=== PATIENT | female | born 1975 | race Caucasian/White ===

== ENCOUNTER 2022-04-09 12:00 | Emergency (ER) | payer OTHER, MEDICAID, SELFPAY ==
[2022-04-09 12:09] VITALS: BP 148/79; PULSE 105; RESP 15; TEMP 37.2; O2SAT 97; BMI 30.7
[2022-04-09 13:27] LABS: Influenza A - CEPHEID Flu A POSITIVE (NEGATIVE); Influenza B - CEPHEID Flu B NEGATIVE (NEGATIVE); Respiratory Syncytial Virus Negative (Negative)
[2022-04-09 13:32] LABS: COVID-19 CEPHEID 4-PLEX PCR Negative (Negative)
[2022-04-09] MEDS: DEXAMETHASONE 10 MG/ML VIAL PO (13:46)
--- NOTE | 2022-04-09 13:52 | ED.URI ---
HPI - URI/Sore Throat <ORQUIDEA Patrick - Last Filed: 04/09/22 13:56> General Chief Complaint: Upper Respiratory Symptoms Stated Complaint: really sick for month & half, lungs & head hurt Time Seen by Provider: 04/09/22 13:08 Source: patient Mode of arrival: Ambulatory History of Present Illness HPI Narrative: This is a 46-year-old female presents emergency department with a cough for 1.5 months, states started again 4 days ago and has gotten worse, she has a headache and body aches, complains of fatigue. Denies any nausea, vomiting, chills or fever. Patient has had positive sick contacts recently, denies any medication today, she is an everyday smoker. Related Data Previous Rx's Medication Instructions Recorded albuterol sulfate 90 mcg/actuation 1 puff inhalation QID PRN 04/09/22 aerosol inhaler shortness of breath or wheezing #8.5 grams methylprednisolone 4 mg tablets in See Rx Instructions PO .COMPLEX 04/09/22 a dose pack (Medrol (Jesse)) #21 ea Allergies Allergy/AdvReac Type Severity Reaction Status Date / Time No Known Drug Allergies Allergy Verified 04/09/22 12:09 Patient History <ORQUIDEA Patrick - Last Filed: 04/09/22 13:56> Social History Smoking Status: Current every day smoker Smoking Status: Current every day smoker alcohol intake frequency: holidays/special occasions only Substance Use Type: does not use Exam <ORQUIDEA Patrick - Last Filed: 04/09/22 13:56> Narrative Exam Narrative: Reviewed vitals signs and nursing notes. General: cooperative, comfortable, in no acute distress, well groomed complains of aches and pains with coughing HEENT: symmetrical facial expressions, moist mucous membranes, congestion present without sinus tenderness Cardiovascular: regular rate and rhythm, no peripheral edema, warm extremities Respiratory: normal effort, frequent cough, nonproductive, able to speak in complete sentences, without wheezing, stridor, or abnormal breath sounds. No retractions or tachypnea. GI: abdomen soft, nontender to palpation, nondistended, without masses, rebound tenderness or exquisite tenderness with exam. MSK: moves all extremities, neurovascularly intact, no weakness, normal tone Skin: brisk capillary refill, without pallor or erythema Neuro: normal speech and cognition, A&O x3, ambulatory, clear speech Psych: mental status is grossly normal, congruent mood, normal affect, pleasant and cooperative Initial Vital Signs Initial Vital Signs: Vital Signs Temperature 99.0 F 04/09/22 12:09 Pulse Rate 105 H 04/09/22 12:09 Respiratory Rate 15 04/09/22 12:09 Blood Pressure 148/79 H 04/09/22 12:09 Pulse Oximetry 97 04/09/22 12:09 Oxygen Delivery Method 04/09/22 12:09 <Julio Riddle DO - Last Filed: 04/09/22 14:34> Initial Vital Signs Initial Vital Signs: Vital Signs Temperature 99.0 F 04/09/22 12:09 Pulse Rate 105 H 04/09/22 12:09 Respiratory Rate 15 04/09/22 12:09 Blood Pressure 148/79 H 04/09/22 12:09 Pulse Oximetry 97 04/09/22 12:09 Oxygen Delivery Method 04/09/22 12:09 Course <ORQUIDEA Patrick - Last Filed: 04/09/22 13:56> Orders Ordered: ED Orders 04/09/22 12:14 Covid-19 + FLU A/B + RSV - PCR Stat Discontinued Medications Albuterol/Ipratropium (Albuterol/Ipratropium 3 Ml Ampul) 3 ml INH NOW ONE Stop: 04/09/22 13:30 Last Admin: 04/09/22 14:12 Dose: Not Given Documented By: RB Dexamethasone (Dexamethasone 10 Mg/Ml Vial) 10 mg PO NOW ONE Stop: 04/09/22 13:30 Last Admin: 04/09/22 13:46 Dose: 10 mg Documented By: BT Vital Signs Vital signs: Vital Signs - 8 hr 04/09/22 12:09 04/09/22 14:08 Temperature 99.0 F 99.4 F Pulse Rate 105 H 93 H Respiratory Rate 15 18 Blood Pressure 148/79 H 139/83 Pulse Oximetry 97 97 Oxygen Delivery Method Room Air Room Air <Julio Riddle DO - Last Filed: 04/09/22 14:34> Orders Ordered: ED Orders 04/09/22 12:14 Covid-19 + FLU A/B + RSV - PCR Stat Discontinued Medications Albuterol/Ipratropium (Albuterol/Ipratropium 3 Ml Ampul) 3 ml INH NOW ONE Stop: 04/09/22 13:30 Last Admin: 04/09/22 14:12 Dose: Not Given Documented By: RB Dexamethasone (Dexamethasone 10 Mg/Ml Vial) 10 mg PO NOW ONE Stop: 04/09/22 13:30 Last Admin: 04/09/22 13:46 Dose: 10 mg Documented By: BT Vital Signs Vital signs: Vital Signs - 8 hr 04/09/22 12:09 04/09/22 14:08 Temperature 99.0 F 99.4 F Pulse Rate 105 H 93 H Respiratory Rate 15 18 Blood Pressure 148/79 H 139/83 Pulse Oximetry 97 97 Oxygen Delivery Method Room Air Room Air MDM - URI/Sore Throat <ORQUIDEA Patrick - Last Filed: 04/09/22 13:56> Lab Data Labs: Lab Results 04/09/22 Range/Units 12:14 SARS-CoV-2 (PCR) Negative (Negative) Influenza A (RT-PCR) Flu a positive H (NEGATIVE) Influenza B (RT-PCR) Flu b negative (NEGATIVE) RSV (PCR) Negative (Negative) MDM Narrative Medical decision making narrative: This is a 46-year-old female presents to the emergency department of cough, cold and congestion for 1.5 months and state it got worse a few days ago, complains of a headache with frequent cough. She is an everyday smoker, respiratory panel is positive for influenza A patient has a frequent cough without wheezes, significant dyspnea, hypoxia, or increased respiratory effort. She was given an albuterol nebulizer, and given an albuterol inhaler to use as needed for shortness of breath. Encouraged her to use Tylenol and ibuprofen as needed for aches and pains, [id number] antihistamines and decongestants for her other symptoms. She is given strict return precautions, encouraged to stay hydrated. Other possible diagnosis' considered include; viral URI, influenza, pneumonia, pharyngitis, acute bronchitis, allergic rhinitis, pertussis, sinusitis, appendicitis, dehydration. Rest, drink plenty of fluids, NSAIDS for muscle aches and pains. Return to ED for worsening symptoms such as SOB, chest pain, inability to take adequate oral fluids, fever, or productive cough. <Julio Riddle DO - Last Filed: 04/09/22 14:34> Lab Data Labs: Lab Results 04/09/22 Range/Units 12:14 SARS-CoV-2 (PCR) Negative (Negative) Influenza A (RT-PCR) Flu a positive H (NEGATIVE) Influenza B (RT-PCR) Flu b negative (NEGATIVE) RSV (PCR) Negative (Negative) Discharge Plan Departure Patient Disposition: Home Clinical Impression: Influenza A Instructions: Influenza, DI for Acute Bronchitis Activity Restrictions/Additional Instructions: *You have been diagnosed with influenza a, likely why you been coughing as much as you have. Please use your albuterol inhaler as needed for shortness of breath, frequent cough, for productive cough use Mucinex every 4-6 hours, please stay hydrated, ibuprofen and Tylenol is helpful for pain and aches. Zyrtec is helpful for increased congestion for you and your daughter. Hope you feel better soon, thank you for your patients and for your help with your daughter, I hope that heals quickly. *What to do: *Please continue to take your regular medications as directed. [x ] New medication prescriptions sent to your pharmacy: [ [facility]] [ ] New medication written as a paper prescription [ ] No new medications given *Please follow up with your primary care provider in 2-3 days, call for an appointment. Let them know you were seen in the Emergency Department and that we asked that you be seen for follow-up. We will electronically transmit a record of today's note if your PCP is in our system *If you do not have a primary care provider please contact [phone] to establish care with one of the [facility] primary care providers. *Return to Emergency Department if you should have any new, worsening, or concerning symptoms, such as [fever greater than 101F, chills, worsening pain, persistent vomiting or other bothersome symptoms]. Prescriptions: New albuterol sulfate 90 mcg/actuation HFA aerosol inhaler 1 puff inhalation QID PRN (Reason: shortness of breath or wheezing) Qty: 8.5 0RF methylprednisolone [Medrol (Jesse)] 4 mg tablets,dose pack See Rx Instructions .ROUTE .COMPLEX Qty: 21 0RF Rx Instructions: orally per package directions Visit Report Forms: Patient Portal/API <Julio Riddle DO - Last Filed: 11/29/22 14:34> Cosign ED Attending Cosignature Attestation: Dr Riddle Co-Sign Statement: I was available for consultation during this patient's emergency department visit. This chart is signed by myself for administrative purposes only. I did not have direct contact with this patient during this visit. They were seen independently by the APC.
[2022-04-09 14:08] VITALS: BP 139/83; PULSE 93; RESP 18; TEMP 37.4; O2SAT 97
== END 2022-04-09 14:17 | disposition home or self-care (01) ==
PROVIDERS: Emergency Medicine; Emergency Provider Nurse Practitioner Critical Care Medicine
DX: J10.1 Influenza due to other identified influenza virus with other respiratory manifestations (principal); Z20.822 Contact with and (suspected) exposure to COVID-19
CPT/HCPCS: 0241U; 99283; J1100